=== PATIENT | male | born 1965 | race Hispanic/Latino ===

== ENCOUNTER → 2017-08-26 | Outpatient (CLI) | payer OTHER ==
[~2017-08-26] MED LIST: GLIPIZIDE ER5 MG PO; LANTUS 3ML100 UNITS/ SC; LOSARTAN POTASS25 MG PO; METFORMIN HCL500 M1 PO; PRAVASTATIN SOD20 MG PO
--- NOTE | 2017-08-26 15:39 | Diagnostic Imaging Report ---
EXAM: Scrotal Ultrasound with Duplex INDICATION: \[id number] \[id number] \S\OTHER CHRONIC PAIN COMPARISON: None TECHNIQUE: Transverse and longitudinal images were obtained of the scrotum with grayscale imaging, color Doppler and spectral waveform analysis. FINDINGS: Right testis: Size: 3.8 x 2.4 x 3.2 cm, normal in size. Echogenicity: Normal Mass/Cysts: None Left testis: Size: 4.3 x 2.3 x 3.3 cm, normal in size. Echogenicity: Normal Mass/Cysts: None Epididymis: Appearance: Normal in size without increased vascularity. Mass/Cysts: None Extratesticular: Masses: None Hydrocele: Trace bilaterally. Varicocele: None Doppler: Normal arterial flow to both testes and symmetrical flow on color Doppler evaluation is seen. No evidence of testicular torsion. No sonographic evidence of inguinal hernia bilaterally. IMPRESSION: 1. No evidence of testicular torsion. 2. Normal scrotal ultrasound exam. Signed by: DR. Gerry Cooper MD on 08/26/2017 3:35 PM
--- NOTE | 2017-08-31 14:21 | Diagnostic Imaging Report ---
EXAM: Scrotal Ultrasound with Duplex INDICATION: \[id number] \[id number] \S\OTHER CHRONIC PAIN COMPARISON: None TECHNIQUE: Transverse and longitudinal images were obtained of the scrotum with grayscale imaging, color Doppler and spectral waveform analysis. FINDINGS: Right testis: Size: 3.8 x 2.4 x 3.2 cm, normal in size. Echogenicity: Normal Mass/Cysts: None Left testis: Size: 4.3 x 2.3 x 3.3 cm, normal in size. Echogenicity: Normal Mass/Cysts: None Epididymis: Appearance: Normal in size without increased vascularity. Mass/Cysts: None Extratesticular: Masses: None Hydrocele: Trace bilaterally. Varicocele: None Doppler: Normal arterial flow to both testes and symmetrical flow on color Doppler evaluation is seen. No evidence of testicular torsion. No sonographic evidence of inguinal hernia bilaterally. IMPRESSION: 1. No evidence of testicular torsion. 2. Normal scrotal ultrasound exam. Signed by: DR. Gerry Cooper MD on 08/26/2017 3:35 PM
== END ==
LOC: US 08:44
PROVIDERS: ATTEND Urology
DX: G89.29 Other chronic pain (principal)
CPT/HCPCS: 76870; 93976